=== PATIENT | male | born 1965 | race African-American/Black ===

== ENCOUNTER 2018-02-26 02:13 | Emergency (ER) | payer BC, OTHER ==
[2018-02-26 02:46] VITALS: BMI 48.2
[2018-02-26 03:41] LABS: BASO % 1.1 % (0-2.0); EOS % 1.7 % (0-4.5); HEMATOCRIT 39.6 % (35.4-49); HEMOGLOBIN 14.1 GM/dL (11.7-16.9); MCH 31.1 pg (25.7-33.7); MCHC 35.5 g/dl (32.0-35.9); MEAN CELL VOLUME 87.7 fl (80-96); MEAN PLT VOLUME 9.4 fl (7.5-11.1); MONO % 7.3 % (3.8-10.2); NEUT % 54.9 % (42.8-82.8); PLATELET COUNT 191 K/MM3 (134-434); RBC 4.52 M/mm3 (4.00-5.60); RDW 13.8 % (11.9-15.9); WHITE BLOOD COUNT 4.7 K/mm3 (4.0-10.0)
[2018-02-26] MEDS ORDERED: diazePAM CARPU-JECT 10 MG/2 ML DISP.SYRIN IVPUSH ONE (03:42)
--- NOTE | 2018-02-26 03:42 | PDOC ---
History of Present Illness - General Chief Complaint: Chest Pain Stated Complaint: CHEST DISCOMFORT Time Seen by Provider: 02/26/18 02:24 History Source: Patient Exam Limitations: No Limitations - History of Present Illness Initial Comments: 02/26/18 03:37 The patient is a 52M with a PMH of HTN, DM, and "irregular heartbeat" who presents to the ER complaining of neck pain. The patient states that he woke up out of sleep with 10/10 sharp neck pain which radiates down his arm and to his L chest, constant, abrupt, and not alleviated or exacerbated by anything. He tried taking 2 tylenol with no relief. He denies any SOB, nausea, vomiting, fever, chills. He states that he has had neck pain in the same area in the past but today it was much worse. 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." Past History - Past Medical History Allergies/Adverse Reactions: Allergies Allergy/AdvReac Type Severity Reaction Status Date / Time No Known Allergies Allergy Verified 09/21/13 20:38 Home Medications: Ambulatory Orders Fosinopril Sodium 40 mg PO DAILY 02/26/18 Insulin Glargine,Hum.rec.anlog [Lantus] 40 unit SQ HS 02/26/18 Metformin HCl [Glucophage] 1,000 mg PO BID 02/26/18 Methocarbamol [Robaxin -] 500 mg PO BID #14 tablet 02/26/18 Propranolol HCl [Propranolol HCl ER] 60 mg PO DAILY 02/26/18 Simvastatin 40 mg PO HS 02/26/18 COPD: No Diabetes: Yes (non insulin dependent) HTN: Yes Hypercholesterolemia: Yes - Suicide/Smoking/Psychosocial Hx Smoking Status: No Smoking History: Never smoked Have you smoked in the past 12 months: No Number of Cigarettes Smoked Daily: 0 Information on smoking cessation initiated: No Hx Alcohol Use: No Drug/Substance Use Hx: No Substance Use Type: None Review of Systems - Review of Systems Able to Perform ROS?: Yes Comments:: 02/26/18 03:39 GENERAL/CONSTITUTIONAL: No fever or chills. No weakness. HEAD, EYES, EARS, NOSE AND THROAT: No change in vision. No ear pain or discharge. No sore throat. CARDIOVASCULAR: Positive for chest pain. No palpitations, or lightheadedness. RESPIRATORY: No cough, wheezing, shortness of breath, or hemoptysis. GASTROINTESTINAL: No nausea, vomiting, diarrhea, constipation, or abdominal pain. GENITOURINARY: No dysuria, frequency, hematuria, or change in urination. MUSCULOSKELETAL: Positive for neck, L shoulder, and L arm pain. No joint or muscle swelling or pain. SKIN: No rash or lesions. NEUROLOGIC: No headache, numbness, tingling, weakness, loss of consciousness, or change in strength/sensation. ENDOCRINE: No increased thirst. No abnormal weight change. HEMATOLOGIC/LYMPHATIC: No anemia, easy bleeding, or history of blood clots. ALLERGIC/IMMUNOLOGIC: No hives or skin allergy. Is the patient limited [place] proficient: No *Physical Exam - Vital Signs Last Vital Signs Temp Pulse Resp BP Pulse Ox 98.7 F 75 18 152/103 99 02/26/18 02:43 02/26/18 02:43 02/26/18 02:43 02/26/18 02:43 02/26/18 02:43 - Physical Exam Comments: 02/26/18 03:40 GENERAL: Well developed, well nourished. Awake and alert. No acute distress. HEENT: Normocephalic, atraumatic. Hearing grossly normal. Moist mucous membranes. PERRLA, EOMI. No conjunctival pallor. Sclera are non-icteric. NECK: Supple. Full ROM. No JVD. CARDIOVASCULAR: Regular rate and rhythm. No murmurs, rubs, or gallops. PULMONARY: No evidence of respiratory distress. Lungs clear to auscultation bilaterally. No wheezing, rales or rhonchi. ABDOMINAL: Soft. Non-tender. Non-distended. No rebound or guarding. GENITOURINARY: No CVA tenderness bilaterally. MUSCULOSKELETAL: Tender to palpation over L upper paraspinal thoracic spine. Normal range of motion at all joints. No bony deformities or tenderness. EXTREMITIES: No cyanosis. No clubbing. No edema. No calf tenderness. SKIN: Warm and dry. Normal capillary refill. No rashes. No jaundice. NEUROLOGICAL: Alert, awake, appropriate. Cranial nerves 2-12 intact. Normal speech. Gait is normal without ataxia. PSYCHIATRIC: Cooperative. Good eye contact. Appropriate mood and affect. Heart Score/ECG Review #1 General ECG Interpretation: Sinus Rhythm, Normal Rate, Normal Intervals, No acute ischemic changes Compared to previous ECG there are: No significant change 02/26/18 05:05 NSR Rate 88 W[place] 160 QRS 76 QTc 404 No acute ischemic changes noted No MARYELLEN or STD noted ED Treatment Course - LABORATORY CBC & Chemistry Diagram: 02/26/18 03:33 02/26/18 03:33 - RADIOLOGY Radiology Studies Ordered: Category Date Time Status CHEST PA & LAT [RAD] Stat Radiology 02/26/18 03:19 Ordered Medical Decision Making - Medical Decision Making 02/26/18 03:41 The patient is a 52M with a PMH of DM and HTN who presents to the ER with neck pain which radiates to his chest. Due to the pt's PMH of HTN and DM, he is at higher risk for cardiac events. Will r/o ACS with EKG and 2 troponins. This is unlikely cardiac in nature and most likely musculoskeletal. Pending labs and imaging. 02/26/18 05:04 All labs WNL. EKG NSR. CXR negative on preliminary read. Pending repeat trop. Will give valium for musculoskeletal back pain. 02/26/18 06:37 Repeat troponin sent. 02/26/18 06:54 Attending would like to do c-spine CT. She has placed order. I have signed the patient out to Dr. Wallace. *DC/Admit/Observation/Transfer Diagnosis at time of Disposition: Neck pain - Discharge Dispostion Disposition: HOME Condition at time of disposition: Good - Prescriptions Prescriptions: Methocarbamol [Robaxin -] 500 mg PO BID #14 tablet - Referrals Referrals: David Sullivan [Primary Care Provider] - Garry Nina MD [Staff Physician] - - Patient Instructions Printed Discharge Instructions: DI for Neck Pain Additional Instructions: Please return to the ER if you experience concerning or worsening symptoms including worsening pain, fevers, weakness, or numbness. Your lab results were normal here in the ER. Your CT scan showed some chronic degenerative changes that could be contributing to your symptoms. Please call to schedule a follow up appointment with your primary care provider and our Neurologist Dr. Nina to discuss your ER visit and further management of your symptoms. - Post Discharge Activity Forms/Work/School Notes: Back to Work
[2018-02-26 04:05] LABS: ALBUMIN 3.6 g/dl (3.4-5.0); ANION GAP 4 (8-16); BILIRUBIN,TOTAL 0.9 mg/dL (0.2-1.0); BLOOD UREA NITROGEN 14 mg/dL (7-18); CALCIUM 8.4 mg/dL (8.5-10.1); CHLORIDE 108 mmol/L (98-107); CO2 30 mmol/L (21-32); GLUCOSE,RANDOM 256 mg/dL (74-106); POTASSIUM 3.8 mmol/L (3.5-5.1); SGOT/AST 14 U/L (15-37); SGPT/ALT 21 U/L (12-78); SODIUM 142 mmol/L (136-145); TOT PROT 6.7 g/dl (6.4-8.2)
[2018-02-26 04:08] LABS: ALK PHOS 147 U/L (45-117)
[2018-02-26] MEDS ORDERED: diazePAM 5 MG TABLET PO ONE (04:50)
[2018-02-26] MEDS ORDERED: diazePAM 5 MG TABLET ONE (05:02)
--- NOTE | 2018-02-26 06:48 | PDOC ---
Attending Attestation - Resident Resident Name: Bay Eddy - ED Attending Attestation I have performed the following: I have examined & evaluated the patient, The case was reviewed & discussed with the resident, I agree w/resident's findings & plan - HPI HPI: 02/26/18 06:48 Pt comes with chest and back pain; - Physicial Exam PE: 02/26/18 06:57 Agree with resident exam. - Medical Decision Making 02/26/18 06:57 Pt has normal labs first set; 2nd cardiac enzyme is pending. CT c-spine pending CXR normal EKG NSR 02/26/18 06:59 Pt will be signed out to the day team
[2018-02-26] MEDS ORDERED: METHOCARBAMOL 500 MG TABLET PO ONE (06:54)
[2018-02-26] MEDS ORDERED: METHOCARBAMOL 500 MG TABLET ONE (06:58)
--- NOTE | 2018-02-26 08:33 | PDOC ---
*Physical Exam - Vital Signs Last Vital Signs Temp Pulse Resp BP Pulse Ox 98.7 F 76 18 139/99 97 02/26/18 02:43 02/26/18 07:48 02/26/18 07:48 02/26/18 07:48 02/26/18 07:48 - Physical Exam Comments: 02/26/18 10:08 General Appearance: Nourished. No Apparent Distress HEENT: No Pharyngeal Erythema, Tonsillar Exudate, Tonsillar Erythema Neck: No Cervical Lymphadenopathy Respiratory/Chest: Lungs Clear, Normal Breath Sounds. No Crackles, Rales, Rhonchi, Wheezing Cardiovascular: Regular Rhythm, Regular Rate. No Murmur, Gallops, Rubs Gastrointestinal/Abdominal: Normal Bowel Sounds, Soft. No Guarding, Rebound, Tenderness Musculoskeletal: No CVA Tenderness Extremity: Normal Capillary Refill Integumentary: Normal Color, Dry, Warm Neurologic: Fully Oriented, Alert, Normal Mood/Affect, Normal Response, Motor Strength 5/5. ED Treatment Course - LABORATORY CBC & Chemistry Diagram: 02/26/18 03:33 02/26/18 03:33 - ADDITIONAL ORDERS Additional order review: Laboratory Results 02/26/18 02/26/18 06:35 03:33 Sodium 142 Potassium 3.8 Chloride 108 H Carbon Dioxide 30 Anion Gap 4 L BUN 14 Creatinine 1.0 Creat Clearance w eGFR > 60 Random Glucose 256 H Calcium 8.4 L Total Bilirubin 0.9 AST 14 L ALT 21 Alkaline Phosphatase 147 H Creatine Kinase 63 69 Troponin I < 0.02 < 0.02 Total Protein 6.7 Albumin 3.6 02/26/18 03:33 RBC 4.52 MCV 87.7 MCHC 35.5 RDW 13.8 MPV 9.4 Neutrophils % 54.9 Lymphocytes % 35.0 Monocytes % 7.3 Eosinophils % 1.7 Basophils % 1.1 - Medications Given in the ED: ED Medications Discontinued Medications Generic Name Dose Route Start Last Admin Trade Name Freq PRN Reason Stop Dose Admin Diazepam 5 mg 02/26/18 03:42 02/26/18 05:01 Valium Injection - IVPUSH 02/26/18 03:43 Not Given ONCE ONE Diazepam 5 mg 02/26/18 04:50 02/26/18 05:06 Valium - PO 02/26/18 04:51 5 mg ONCE ONE Administration Methocarbamol 1,000 mg 02/26/18 06:54 02/26/18 07:00 Robaxin - PO 02/26/18 06:55 1,000 mg ONCE ONE Administration Progress Note - Progress Note Progress Note: The patient is a 52 year old male who presented for evaluation of neck pain with radiation into the patient's left arm. The patient has recently had a full negative cardiology work up 1 month ago and work up thus far as been negative with 2 negative troponins here in the ED. The patient is pending a CT cervical spine to evaluate further. Medical Decision Making - Medical Decision Making 02/26/18 10:06 CT scan demonstrates chronic degenerative changes as preliminarily read by our staff electronic warfare officer radiologist pending official radiology read. We are comfortable discharging the patient home at this time with neurology and primary care provider follow up at this time. We discussed the results, plan and return precautions with the patient who voiced understanding and is agreeable with the plan. *DC/Admit/Observation/Transfer Diagnosis at time of Disposition: Neck pain - Discharge Dispostion Condition at time of disposition: Good Admit: No - Prescriptions Prescriptions: Methocarbamol [Robaxin -] 500 mg PO BID #14 tablet - Referrals Referrals: David Sullivan [Primary Care Provider] - Garry Nina MD [Staff Physician] - - Patient Instructions Printed Discharge Instructions: DI for Neck Pain Additional Instructions: Please return to the ER if you experience concerning or worsening symptoms including worsening pain, fevers, weakness, or numbness. Your lab results were normal here in the ER. Your CT scan showed some chronic degenerative changes that could be contributing to your symptoms. Please call to schedule a follow up appointment with your primary care provider and our Neurologist Dr. Nina to discuss your ER visit and further management of your symptoms. - Post Discharge Activity Forms/Work/School Notes: Back to Work
[2018-02-26 10:11] VITALS: BP 138/77; PULSE 84; TEMP 98.1
--- NOTE | 2018-02-27 12:28 | EKG ---
Test Reason : Blood Pressure : / mmHG Vent. Rate : 088 BPM Atrial Rate : 088 BPM P-R Int : 160 ms QRS Dur : 076 ms QT Int : 334 ms P-R-T Axes : 059 054 053 degrees QTc Int : 404 ms NORMAL SINUS RHYTHM NORMAL ECG NO PREVIOUS ECGS AVAILABLE Confirmed by BABATUNDE CHRISTIAN MD ([id number]) on 02/27/2018 12:28:00 PM Referred By: Confirmed By:BABATUNDE CHRISTIAN MD
== END 2018-02-26 10:10 | disposition home or self-care (01) ==
LOC: JER 02:13
DX: M54.2 Cervicalgia (principal); I10 Essential (primary) hypertension; E11.9 Type 2 diabetes mellitus without complications; Z79.4 Long term (current) use of insulin; Z79.84 Long term (current) use of oral hypoglycemic drugs; E78.00 Pure hypercholesterolemia, unspecified
CPT/HCPCS: 36415; 71046-TC-FY; 72125-TC; 80053; 82550; 84484; 85025; 93005; 93010; 99283-25

== ENCOUNTER 2022-08-06 00:58 | Inpatient (IN) | payer BC, OTHER ==
[2022-08-06 03:10] LABS: BASO % 1.3 % (0-2.0); EOS % 1.7 % (0-4.5); HEMATOCRIT 40.5 % (35.4-49); HEMOGLOBIN 14.2 GM/dL (11.7-16.9); LYMPH % 29.4 % (8-40); MCH 29.9 pg (25.7-33.7); MCHC 34.9 g/dl (32.0-35.9); MEAN CELL VOLUME 85.8 fl (80-96); MEAN PLT VOLUME 8.3 fl (7.5-11.1); MONO % 7.9 % (3.8-10.2); NEUT % 59.7 % (42.8-82.8); PLATELET COUNT 229 10^3/uL (134-434); RBC 4.73 M/mm3 (4.00-5.60); RDW 14.4 % (11.9-15.9); WHITE BLOOD COUNT 5.7 K/mm3 (4.0-10.0)
[2022-08-06 03:19] LABS: INR 0.94 (0.83-1.09); PROTHROMBIN TIME (PATIENT) 10.8 SEC (9.7-13.0)
[2022-08-06 03:21] LABS: ACTIVATED PTT 32.3 SECONDS (25.2-36.5)
[2022-08-06 03:23] LABS: CALCIUM 9.1 mg/dL (8.5-10.1)
[2022-08-06 03:24] LABS: ALBUMIN 3.7 g/dl (3.4-5.0); BLOOD UREA NITROGEN 11.8 mg/dL (7-18)
[2022-08-06 03:27] LABS: CREATININE 1.1 mg/dL (0.55-1.3)
[2022-08-06 03:28] LABS: BILIRUBIN,TOTAL 0.8 mg/dL (0.2-1)
[2022-08-06] MEDS ORDERED: APIXABAN 5 MG TABLET PO ONE (06:53)
[2022-08-06] MEDS ORDERED: APIXABAN 5 MG TABLET ONE ×2 (07:05→22:06)
[2022-08-06] MEDS ORDERED: APIXABAN 5 MG TABLET PO SCH ×3 (10:00→22:00)
[2022-08-06] MEDS ORDERED: ACETAMINOPHEN 325 MG TABLET (FP) PO PRN (10:02)
[2022-08-06 10:56] LABS: MAGNESIUM 1.8 mg/dL (1.8-2.4)
[2022-08-06 10:59] LABS: PHOSPHOROUS 3.2 mg/dL (2.5-4.9)
[2022-08-06] MEDS ORDERED: METOPROLOL TARTRATE 5 MG/5 ML VIAL IVPUSH PRN (11:01)
[2022-08-06] MEDS ORDERED: METOPROLOL TARTRATE 25 MG TABLET (FP) ONE (13:24)
[2022-08-06] MEDS: INSULIN SLIDING SCALE (NOVOLOG) 1 VIAL SQ SCH ×3 (13:28→22:33)
[2022-08-06] MEDS: METOPROLOL TARTRATE 25 MG TABLET (FP) PO SCH ×2 (13:29→22:34)
[2022-08-06] MEDS: INSULIN (LEVEMIR) 100 UNITS/ML UNITS SQ SCH ×2 (13:59→22:17)
[2022-08-06] MEDS ORDERED: ATORVASTATIN CA 20 MG TABLET (FP) PO SCH (22:00)
[2022-08-06] MEDS ORDERED: ATORVASTATIN CA 80 MG TABLET (FP) PO SCH (22:00)
[2022-08-06] MEDS ORDERED: ATORVASTATIN CA 80 MG TABLET (FP) ONE (22:06)
[2022-08-07 00:10] VITALS: RESP 18
[2022-08-07 00:53] VITALS: BMI 23.5
[2022-08-07] MEDS: INSULIN SLIDING SCALE (NOVOLOG) 1 VIAL SQ SCH ×3 (06:34→17:19)
[2022-08-07 08:24] LABS: HEMATOCRIT 39.9 % (35.4-49); HEMOGLOBIN 13.5 GM/dL (11.7-16.9); MCH 28.8 pg (25.7-33.7); MCHC 33.7 g/dl (32.0-35.9); MEAN CELL VOLUME 85.4 fl (80-96); PLATELET COUNT 206 10^3/uL (134-434); RBC 4.68 M/mm3 (4.00-5.60); RDW 14.3 % (11.9-15.9); WHITE BLOOD COUNT 4.4 K/mm3 (4.0-10.0)
[2022-08-07 08:50] LABS: CALCIUM 8.6 mg/dL (8.5-10.1)
[2022-08-07 08:51] LABS: BLOOD UREA NITROGEN 11.7 mg/dL (7-18)
[2022-08-07 08:54] LABS: CREATININE 0.9 mg/dL (0.55-1.3); PHOSPHOROUS 3.6 mg/dL (2.5-4.9)
[2022-08-07] MEDS: METOPROLOL TARTRATE 25 MG TABLET (FP) PO SCH (09:25)
[2022-08-07] MEDS: INSULIN (LEVEMIR) 100 UNITS/ML UNITS SQ SCH (09:25)
[2022-08-07] MEDS ORDERED: APIXABAN 5 MG TABLET PO SCH (10:00)
[2022-08-07] MEDS ORDERED: ENALAPRIL MALEATE 10 MG TABLET PO SCH (10:00)
[2022-08-07] MEDS ORDERED: INSULIN (NOVOLOG) ASPART 100 UNITS/ML 10ML VIAL ONE (12:07)
[2022-08-07 15:08] VITALS: BP 123/81; PULSE 74; TEMP 98
[2022-08-07] MEDS ORDERED: METOPROLOL TARTRATE 50 MG TABLET (FP) PO ONE (17:14)
== END 2022-08-07 18:19 | disposition home or self-care (01) | DRG 310 ==
LOC: JER 00:58 → JERBED 07:05 → OBSVTOIN 10:08 → J4W 23:18
PROVIDERS: ADMIT Internal Medicine; ATTEND Internal Medicine
DX: I48.0 Paroxysmal atrial fibrillation (principal); I10 Essential (primary) hypertension; E78.5 Hyperlipidemia, unspecified; Z79.4 Long term (current) use of insulin; E11.65 Type 2 diabetes mellitus with hyperglycemia; F41.9 Anxiety disorder, unspecified
CPT/HCPCS: 36415; 71046-TC-FY; 80048; 80053; 80061; 82962; 83036; 83735; 83880; 84100; 84439; 84443; 84480; 84484; 85025; 85027; 85610; 85730; 93005; 93010; 93306-TC; 99285-25; C9803-CS; G0378; U0003; U0005

== ENCOUNTER 2024-12-29 14:58 | Observation (INO) | payer BC, OTHER ==
[2024-12-29 16:25] LABS: BASO % 1.4 % (0-2.0); EOS % 0.1 % (0-4.5); HEMOGLOBIN 14.2 GM/dL (11.7-16.9); LYMPH % 15.2 % (8-40); MCH 29.1 pg (25.7-33.7); MEAN CELL VOLUME 88.2 fl (80-96); MEAN PLT VOLUME 8.3 fl (7.5-11.1); MONO % 5.1 % (3.8-10.2); NEUT % 78.2 % (42.8-82.8); PLATELET COUNT 221 10^3/uL (134-434); RBC 4.87 M/mm3 (4.00-5.60); RDW 14.2 % (11.9-15.9); WHITE BLOOD COUNT 6.5 K/mm3 (4.0-10.0)
[2024-12-29 16:42] LABS: POTASSIUM 4.3 mmol/L (3.5-5.1)
[2024-12-29 16:45] LABS: ALBUMIN 4.1 g/dl (3.4-5.0); BLOOD UREA NITROGEN 15.4 mg/dL (7-18); CALCIUM 9.9 mg/dL (8.5-10.1)
[2024-12-29 16:48] LABS: CREATININE 1.1 mg/dL (0.55-1.3)
[2024-12-29 16:50] LABS: BILIRUBIN,TOTAL 2.1 mg/dL (0.2-1); TOT PROT 7.3 g/dl (6.4-8.2)
[2024-12-29 17:32] LABS: INR 1.1 (0.83-1.09); PROTHROMBIN TIME (PATIENT) 12.1 SEC (9.7-13.0)
[2024-12-29 17:35] LABS: ACTIVATED PTT 31.2 SECONDS (25.2-36.5)
[2024-12-29 17:48] LABS: HIV INTERPRETATION NEGATIVE (NEGATIVE)
[2024-12-29] MEDS ORDERED: ACETAMINOPHEN 325 MG TABLET (FP) PO PRN (19:29)
[2024-12-29] MEDS: INSULIN ASPART SLIDING SCALE (NOVOLOG) 1 VIAL SQ SCH (23:27)
[2024-12-29 23:50] VITALS: BMI 22.6
[2024-12-30 08:29] LABS: EOS % 1.1 % (0-4.5); HEMATOCRIT 38.1 % (35.4-49); HEMOGLOBIN 13.2 GM/dL (11.7-16.9); LYMPH % 29.5 % (8-40); MCH 29.9 pg (25.7-33.7); MCHC 34.6 g/dl (32.0-35.9); MEAN CELL VOLUME 86.4 fl (80-96); MEAN PLT VOLUME 8.8 fl (7.5-11.1); MONO % 9.7 % (3.8-10.2); NEUT % 58.7 % (42.8-82.8); PLATELET COUNT 187 10^3/uL (134-434); RDW 14.2 % (11.9-15.9); WHITE BLOOD COUNT 4.8 K/mm3 (4.0-10.0)
[2024-12-30 08:45] LABS: POTASSIUM 4.5 mmol/L (3.5-5.1)
[2024-12-30 08:57] LABS: BLOOD UREA NITROGEN 13.4 mg/dL (7-18); MAGNESIUM 1.9 mg/dL (1.8-2.4)
[2024-12-30 08:59] LABS: PHOSPHOROUS 3.4 mg/dL (2.5-4.9)
[2024-12-30] MEDS: APIXABAN 5 MG TABLET PO SCH (13:05)
[2024-12-30] MEDS: metoPROLOL SUCCINATE 25 MG TAB.SR.24H (FP) PO SCH (13:06)
[2024-12-30] MEDS: sitaGLIPtin PHOSPHATE 50 MG TABLET PO SCH (13:06)
[2024-12-30] MEDS: LOSARTAN POTASSIUM 50 MG TABLET PO SCH (13:06)
[2024-12-30] MEDS: amLODIPine BESYLATE 5 MG TABLET (FP) PO SCH (13:06)
[2024-12-30] MEDS: metFORMIN HCL 500 MG TABLET (FP) PO SCH (17:13)
[2024-12-30] MEDS: DOCUSATE SODIUM 100 MG CAPSULE (FP) PO PRN (18:02)
[2024-12-30] MEDS: ATORVASTATIN CA 80 MG TABLET (FP) PO SCH (21:13)
[2024-12-31 01:41] VITALS: RESP 18
[2024-12-31 07:22] LABS: POTASSIUM 4.4 mmol/L (3.5-5.1)
[2024-12-31 07:27] LABS: BASO % 0.6 % (0-2.0); HEMATOCRIT 42.1 % (35.4-49); HEMOGLOBIN 14.2 GM/dL (11.7-16.9); LYMPH % 30.5 % (8-40); MCH 29.6 pg (25.7-33.7); MCHC 33.7 g/dl (32.0-35.9); MEAN CELL VOLUME 87.8 fl (80-96); MEAN PLT VOLUME 9.1 fl (7.5-11.1); MONO % 6.8 % (3.8-10.2); NEUT % 61.1 % (42.8-82.8); PLATELET COUNT 205 10^3/uL (134-434); RBC 4.79 M/mm3 (4.00-5.60); RDW 14.1 % (11.9-15.9); WHITE BLOOD COUNT 5.9 K/mm3 (4.0-10.0)
[2024-12-31 07:30] LABS: ALBUMIN 3.8 g/dl (3.4-5.0); CALCIUM 9.3 mg/dL (8.5-10.1)
[2024-12-31 07:31] LABS: BLOOD UREA NITROGEN 13.1 mg/dL (7-18)
[2024-12-31 07:35] LABS: BILIRUBIN,TOTAL 2.2 mg/dL (0.2-1); TOT PROT 6.8 g/dl (6.4-8.2)
[2024-12-31 08:53] VITALS: BP 127/73; PULSE 87; TEMP 98.8
[2024-12-31] MEDS ORDERED: ENOXAPARIN NA (PORCINE) 40 MG/0.4 ML DISP.SYRIN SQ SCH (10:00)
== END 2024-12-31 14:43 | disposition home or self-care (01) ==
LOC: JER 14:58 → JERBED 19:28 → J4W 22:57
PROVIDERS: ADMIT Student in an Organized Health Care Education/Training Program; ATTEND Internal Medicine
PROC: 3E013VG Introduction of Insulin into Subcutaneous Tissue, Percutaneous Approach (ICD-10-PCS; principal; 2024-12-29)
DX: I48.91 Unspecified atrial fibrillation (principal); E11.9 Type 2 diabetes mellitus without complications; E78.5 Hyperlipidemia, unspecified; I10 Essential (primary) hypertension; R00.2 Palpitations
CPT/HCPCS: 0241U-QW; 36415; 70450-TC; 70551-TC; 71045-TC-FY; 80048; 80053; 82607; 82746; 82962; 83036; 83735; 84100; 84439; 84443; 84484; 85025; 85610; 85730; 86803; 86850; 86900; 86901; 87389; 93005; 93010; 93880-TC; 99285-25; G0378